=== PATIENT | female | born 1980 | race Caucasian/White ===

== ENCOUNTER 2016-06-14 07:11 | Outpatient (CLI) | payer MEDICARE | END 2016-06-14 07:12 | disposition home or self-care (01) | DX: R82.99 Other abnormal findings in urine (principal) ==

== ENCOUNTER 2016-08-01 16:52 | Outpatient (CLI) | payer MEDICARE | END 2016-08-01 16:53 | DX: R30.0 Dysuria (principal) ==

== ENCOUNTER 2016-08-16 14:40 | Outpatient (CLI) | payer MEDICARE | END 2016-08-16 14:41 | disposition home or self-care (01) | DX: N39.0 Urinary tract infection, site not specified (principal); N31.9 Neuromuscular dysfunction of bladder, unspecified ==

== ENCOUNTER 2017-07-19 08:00 | Outpatient (CLI) | payer MEDICARE | END 2017-07-19 08:01 | disposition home or self-care (01) | LOC: LAB.R 08:00 | PROVIDERS: ATTEND Nurse Practitioner Obstetrics & Gynecology | DX: R82.99 Other abnormal findings in urine (principal) | CPT/HCPCS: 87086 ==

== ENCOUNTER 2017-07-30 08:00 | Outpatient (CLI) | payer MEDICARE | END 2017-07-30 08:01 | disposition home or self-care (01) | LOC: LAB.WCP 08:00 | PROVIDERS: ATTEND Family Medicine | DX: N39.0 Urinary tract infection, site not specified (principal) | CPT/HCPCS: 87086 ==

== ENCOUNTER 2018-12-12 12:01 | Outpatient (CLI) | payer MEDICARE ==
--- NOTE | 2018-12-15 10:07 | Mammography Report ---
Reason: SCREENING MAMMOGRAM FOR BREAST CANCER Procedure Date: 12/12/2018 Accession Number: [id number] / [id number] Procedure: MGN - Screening Mammo Dig Bilat CPT Code: FULL RESULT: EXAM: Screening Mammo Dig Bilat DATE: 12/12/2018 12:36 PM CLINICAL HISTORY: Screening encounter. No reported risk factors. Baseline mammogram. TECHNIQUE: (B) - Bilateral CC, laterally exaggerated CC, MLO views were obtained. COMPARISON: None PARENCHYMAL PATTERN: (VD) - The breast(s) demonstrate(s) extremely dense parenchyma, limiting the sensitivity of mammography. FINDINGS: In the right upper outer breast approximately 5.5 cm from the nipple is the suggestion of a grouping of calcifications with question of a partially obscured focal asymmetry underlying. This requires additional views for clarification including 3-D imaging and spot magnification as well as possibly ultrasound. There are no suspicious masses, calcifications, or areas of distortion in the left breast. IMPRESSION: Incomplete examination. BI-RADS category 0. RECOMMENDATION: (ADDMU) - Additional views using both Mammography and Ultrasound recommended. Right upper outer breast BI-RADS CATEGORY: (0) - Incomplete Examination - need additional evaluation. STANDARD QUALIFYING STATEMENTS: 1. This examination was not reviewed with the aid of Computer-Aided Detection (CAD). 2. A negative or benign imaging report should not preclude biopsy if clinically suspicious findings are present. 3. Dense breasts may obscure an underlying neoplasm. 4. This examination was reviewed without the aid of 3D breast imaging (tomosynthesis).
== END 2018-12-12 12:02 | disposition home or self-care (01) ==
LOC: DI.N 12:01
PROVIDERS: ATTEND Obstetrics & Gynecology
DX: Z12.31 Encounter for screening mammogram for malignant neoplasm of breast (principal)
CPT/HCPCS: 77067

== ENCOUNTER 2018-12-25 12:35 | Outpatient (CLI) | payer MEDICARE ==
--- NOTE | 2018-12-25 16:11 | Mammography Report ---
Reason: ABNORMAL MAMMOGRAM Procedure Date: 12/25/2018 Accession Number: [id number] / [id number] Procedure: COREY - Diag Special Views Dig RT CPT Code: FULL RESULT: EXAM: Diag Special Views Dig RT DATE: 12/25/2018 1:47 PM CLINICAL HISTORY: Diagnostic examination. The patient is recalled from screening for right breast calcifications. TECHNIQUE: (R) - Right spot magnified CC, spot magnified MLO and right ML images are obtained. COMPARISON: 12/12/2018. PARENCHYMAL PATTERN: (VD) - The breast(s) demonstrate(s) extremely dense parenchyma, limiting the sensitivity of mammography. FINDINGS: Spot magnification views demonstrate that the predominance of the right breast lateral calcifications are not grouped, however, a cluster of fine likely pleomorphic calcifications resides within the right breast approximately 3 cm from the nipple in the region of focal asymmetry best demonstrated on the right spot MLO image and right spot magnified CC image. This likely corresponds to focally increased density on the 3-D right MLO image 7, approximately 2 cm deep to the nipple. The clustered fine possibly pleomorphic calcifications are suspicious. IMPRESSION: Suspicious findings. BI-RADS category 4. RECOMMENDATION: (BIOPSY) - stereotactic biopsy of the right breast. BI-RADS CATEGORY: (4) - Suspicious. STANDARD QUALIFYING STATEMENTS: 1. This examination was not reviewed with the aid of Computer-Aided Detection (CAD). 2. A negative or benign imaging report should not preclude biopsy if clinically suspicious findings are present. 3. Dense breasts may obscure an underlying neoplasm. 4. This examination was reviewed with the aid of 3D breast imaging (tomosynthesis).
== END 2018-12-25 12:36 | disposition home or self-care (01) ==
LOC: DI 12:35
PROVIDERS: ATTEND Obstetrics & Gynecology
DX: R92.1 Mammographic calcification found on diagnostic imaging of breast (principal)
CPT/HCPCS: 77065; G0279

== ENCOUNTER 2019-01-20 13:33 | Outpatient (CLI) | payer MEDICARE ==
[~2019-01-20 13:33] MED LIST: BUFFERED LIDOCAINE 10 ML SYRINGE ONE; BUPIVACAINE 0.5%-EPI 1:200000 PF 10 ML VIAL ONE
--- NOTE | 2019-01-20 14:49 | Mammography Report ---
Reason: PRE BIOPSY FILMS / BIOPSY CANCELLED Procedure Date: 01/20/2019 Accession Number: [id number] / [id number] Procedure: COREY - Diagnostic Dig RT CPT Code: FULL RESULT: EXAM: Diagnostic Dig RT DATE: 01/20/2019 2:00 PM CLINICAL HISTORY: Patient recently scheduled for stereotactic breast biopsy of possible calcifications in the central right breast noted on diagnostic workup for different calcifications recalled from baseline screening in the upper outer quadrant. Patient missed her morning biopsy appointment appointment, but came in the afternoon. TECHNIQUE: (R) - Right coned magnified CC and 90 degree lateral. COMPARISON: 12/25/2018 and 12/12/2018 PARENCHYMAL PATTERN: (D) - The breasts demonstrate heterogeneously dense fibroglandular parenchyma bilaterally. FINDINGS: Right breast: There are no suspicious masses, calcifications, or areas of distortion. Stable non-clustered/isolated punctate calcifications are noted in the upper outer breast. There is no mammographic finding of concern in the region requested for stereotactic breast biopsy. IMPRESSION: Right breast: Stable benign morphology calcifications upper outer breast. No mammographic finding in the region of recent concern in the anterior central breast. Benign findings. BI-RADS category 2. Biopsy was not performed due to lack of target. Exam results were discussed in detail with the patient. RECOMMENDATION: (ANNUAL) - Recommend routine annual screening mammography. BI-RADS CATEGORY: (2) - Benign Findings. STANDARD QUALIFYING STATEMENTS: 1. This examination was not reviewed with the aid of Computer-Aided Detection (CAD). 2. A negative or benign imaging report should not preclude biopsy if clinically suspicious findings are present. 3. Dense breasts may obscure an underlying neoplasm. 4. This examination was reviewed without the aid of 3D breast imaging (tomosynthesis).
== END 2019-01-20 13:34 | disposition home or self-care (01) ==
LOC: DI 13:33
PROVIDERS: ATTEND Family Medicine
DX: R92.8 Other abnormal and inconclusive findings on diagnostic imaging of breast (principal)

== ENCOUNTER 2019-06-10 08:00 | Outpatient (CLI) | payer MEDICARE ==
[2019-06-10 12:42] LABS: BASOPHILS % (AUTO) 0.5 %; EOSINOPHILS % (AUTO) 0.1 %; HGB - HEMOGLOBIN 12.2 g/dL (12.0-16.0); LYMPHOCYTES # (AUTO) 0.6 10^3/uL (1.5-3.5); LYMPHOCYTES % (AUTO) 7.1 %; MEAN CORPUSCULAR HEMOGLOBIN 29.7 pg (27.0-31.0); MEAN CORPUSCULAR HGB CONC 32.4 g/dL (32.0-36.0); MEAN CORPUSCULAR VOLUME 91.7 fL (81.0-99.0); MEAN PLATELET VOLUME 10.8 fL (7.9-10.8); MONOCYTES # (AUTO) 0.5 10^3/uL (0.0-1.0); MONOCYTES % (AUTO) 6.3 %; NEUTROPHILS # (AUTO) 6.8 10^3/uL (1.5-6.6); NEUTROPHILS % (AUTO) 85.6 %; PLT - PLATELET COUNT 239 10^3/uL (130-450); RED BLOOD COUNT 4.11 10^6/uL (4.20-5.40); RED CELL DISTRIBUTION WIDTH 13.9 % (12.0-15.0); WHITE BLOOD COUNT 7.9 x10^3/uL (4.8-10.8)
[2019-06-10 13:20] LABS: ALBUMIN/GLOBULIN RATIO 1.3 (1.0-2.2); ALKALINE PHOSPHATASE 53 IU/L (42-121); ALT ALANINE AMINOTRANSFERASE 24 IU/L (10-60); AST ASPARTATE AMINOTRANSFERASE 22 IU/L (10-42); BILIRUBIN,TOTAL 0.3 mg/dL (0.2-1.0); BUN - BLOOD UREA NITROGEN 29 mg/dL (6-20); CALCIUM 9.3 mg/dL (8.5-10.3); CARBON DIOXIDE - CO2 25 mmol/L (21-32); CHLORIDE 111 mmol/L (101-111); CHOL/HDL RATIO 1.6 (<4.4); CHOLESTEROL 152 mg/dL; CREATININE 0.9 mg/dL (0.4-1.0); GFR - MDRD 69 (>89); GLUCOSE 133 mg/dL (70-100); HDL CHOLESTEROL 94 mg/dL; LDL CHOLESTEROL,CALCULATED 38 mg/dL; LDL/HDL RATIO 0.4 (<4.4); SODIUM 143 mmol/L (135-145); TOTAL PROTEIN 7.2 g/dL (6.7-8.2); VLDL CHOLESTEROL 20 mg/dL
== END 2019-06-10 08:01 | disposition home or self-care (01) ==
LOC: LAB.WCP 08:00
PROVIDERS: ATTEND Family Medicine
DX: I10 Essential (primary) hypertension (principal)
CPT/HCPCS: 36415; 80053; 80061; 81599; 82088; 83721; 84244; 85025

== ENCOUNTER 2019-06-19 14:05 | Outpatient (CLI) | payer MEDICARE ==
[2019-06-19 18:58] LABS: CALCIUM 9.4 mg/dL (8.5-10.3); CREATININE 0.9 mg/dL (0.4-1.0)
== END 2019-06-19 23:59 | disposition home or self-care (01) ==
LOC: LAB.WCP 14:05
PROVIDERS: ATTEND Nurse Practitioner Family
DX: I10 Essential (primary) hypertension (principal)
CPT/HCPCS: 36415; 80048

== ENCOUNTER 2019-09-01 15:04 | Outpatient (CLI) | payer MEDICARE ==
--- NOTE | 2019-09-01 17:19 | Ultrasound Report ---
Reason: PELVIC PAIN Procedure Date: 09/01/2019 Accession Number: [id number] / [id number] Procedure: US - Pelvic w/Transvaginal CPT Code: Final Report FULL RESULT: EXAM: PELVIC ULTRASOUND EXAM DATE: 09/01/2019 03:02 PM. CLINICAL HISTORY: Pelvic pain for one month, history of . COMPARISON: None. TECHNIQUE: Realtime transabdominal pelvic scan performed to identify the uterus and adnexa and as an overview of other pelvic structures, followed by transvaginal scan to provide greater detail of the uterus and adnexa, with static image documentation. FINDINGS: Uterus: 7.0 x 3.6 x 4.1 cm, volume 54 cc. Anteverted position. Normal overall size and echotexture. Masses: None. Endometrium: 4 mm. Normal. Cervix: Unremarkable. Right Ovary: 2.2 x 1.9 x 1.7 cm, volume 3.7 cc. Normal echotexture and blood flow. Left Ovary: 2.9 x 1.8 x 1.8 cm, volume 4.9 cc. Normal echotexture and blood flow. Small incidental simple cyst or dominant follicle measures 1.4 cm. Free Fluid: None. Other: None. IMPRESSION: Normal pelvic ultrasound. RADIA
== END 2019-09-01 15:05 | disposition home or self-care (01) ==
LOC: DI 15:04
PROVIDERS: ATTEND Obstetrics & Gynecology
DX: R10.2 Pelvic and perineal pain (principal)
CPT/HCPCS: 76830; 76856

== ENCOUNTER 2019-11-25 10:35 | Day surgery (SDC) | payer MEDICARE ==
[2019-11-25] MEDS ORDERED: KETOROLAC 30 MG/ML VIAL IVP ONE (10:36)
[2019-11-25] MEDS ORDERED: ONDANSETRON 4 MG/2 ML VIAL IVP ONE (10:36)
[2019-11-25] MEDS ORDERED: PROPOFOL 200 MG/20 ML VIAL IVP ONE (10:36)
[2019-11-25] MEDS ORDERED: MIDAZOLAM 2 MG/2 ML VIAL IVP ONE (10:36)
[2019-11-25] MEDS ORDERED: DEXAMETHASONE 4 MG/ML VIAL IVP ONE (10:36)
[2019-11-25] MEDS ORDERED: GLYCOPYRROLATE 1 MG/5 ML VIAL IVP ONE (10:36)
[2019-11-25] MEDS ORDERED: fentaNYL 100 MCG/2 ML VIAL IVP ONE (10:36)
[2019-11-25] MEDS ORDERED: ROCURONIUM 50 MG/5 ML VIAL IVP ONE (10:36)
[2019-11-25] MEDS ORDERED: NEOSTIGMINE 1 MG/1 ML 10 ML MDV IVP ONE (10:36)
[2019-11-25] MEDS ORDERED: CEFAZOLIN SODIUM IN 0.9 % NACL 2 GM/100 ML BAG IV ONE (10:44)
[2019-11-25] MEDS ORDERED: LACTATED RINGERS 1,000 ML IV ONE ×2 (10:49→13:30)
[2019-11-25 10:57] LABS: HCG UR QUAL NEGATIVE
--- NOTE | 2019-11-25 11:11 | ANESTHESIA ---
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: Temp Pulse Resp BP Pulse Ox 36.8 C 83 16 119/78 99 11/25/19 10:49 11/25/19 10:49 11/25/19 10:49 11/25/19 10:49 11/25/19 10:49 Height 5 ft 4 in Weight (kg) 53.1 kg Body Mass Index 21.4 - NPO >8 hours - Is Patient ?: No Home Medications and Allergies Home Medications: Ambulatory Orders Nitrofurantoin [Macrobid] 100 mg PO ONCE PRN 11/17/19 hydroCHLOROthiazide [Hydrochlorothiazide] 25 mg PO DAILY 11/17/19 Acetaminophen [Tylenol] 650 mg PO Q6H PRN 09/17/16 Baclofen 20 - 60 mg PO BID 09/17/16 Buspirone HCl 30 mg PO TID 09/17/16 Cranberry Fruit [Cranberry] 400 mg PO DAILY 09/17/16 Ibuprofen 200 mg PO Q6H PRN 09/17/16 Methylphenidate [Ritalin] 5 mg PO BID 09/17/16 Trazodone HCl 100 mg PO DAILY PM PRN 09/17/16 atenoloL [Atenolol] 50 mg PO DAILY 09/17/16 lamoTRIgine [LaMICtal] 250 mg PO DAILY 09/17/16 Melatonin 10 mg PO QPM 10/24/18 Topiramate [Topamax] 50 mg PO QID PRN 10/24/18 buPROPion [Wellbutrin Sr] 150 mg PO DAILY 10/24/18 Magnesium Citrate 500 mg PO BID 07/21/19 Ocrelizumab [Ocrevus] 300 mg IV MAINTENANCE.IV 07/21/19 oxyCODONE [Roxicodone] 7.5 - 15 mg PO PRN PRN 07/21/19 tiZANidine [Zanaflex] 4 mg PO BID 07/21/19 Nitrofurantoin [Macrobid] 100 mg PO ONCE PRN 11/17/19 hydroCHLOROthiazide [Hydrochlorothiazide] 25 mg PO DAILY 11/17/19 Allergies/Adverse Reactions: Allergies Allergy/AdvReac Type Severity Reaction Status Date / Time vortioxetine hydrobromide * Allergy Mild Hives Verified 07/21/19 16:18 [From Brintellix] amitriptyline AdvReac Severe Anxiety Verified 07/21/19 16:18 alix AdvReac Severe Dizziness Verified 07/21/19 16:18 gabapentin AdvReac Anxiety Verified 07/21/19 16:18 Anes History & Medical History - Anesthetic History Anesthesia Complications: reports: No previous complications Family history of Anesthesia Complications: Denies Family history of Malignant Hyperthermia: Denies - Medical History Cardiovascular: reports: Hypertension Pulmonary: reports: None Gastrointestinal: reports: Chronic constipation Urinary: reports: None Neuro: reports: None, Multiple sclerosis, Other (Multiple Sclerosis) Musculoskeletal: reports: None, Fatigue, Other (chronic pain, legs and teeth. takes oxycodone everyday prn) Endocrine/Autoimmune: reports: None Blood Disorders: reports: None Skin: reports: None Smoking Status: Never smoker Psychosocial: reports: Depression, Anxiety - Surgical History General: Colonoscopy Gynecologic: section Orthopedic: Other Exam General: Alert, Oriented x3, Cooperative, No acute distress Dental: Partials Lower (out already) Mouth Openin Fingerbreadth Neck Mobility: Normal Mallampati classification: II Thyromental Distance: 4-6 cm Respiratory: Lungs clear, Normal breath sounds, No respiratory distress, No accessory muscle use Cardiovascular: Regular rate, Normal S1, Normal S2, No murmurs Abdomen: Normal bowel sounds, Soft, No tenderness, No hepatospenomegaly, No masses Extremities: No clubbing, No cyanosis, No edema, Normal pulses, No tenderness/swelling Neurological: Normal gait, Normal speech, Strength at 5/5 X4 ext, Normal tone, Sensation intact, Cranial nerves 3-12 NL, Reflexes 2+ Mental/Cognitive Status: Alert/Oriented X3, Normal for patient Cognitive Status: Within normal limits Plan Anesthesia Type: General Consent for Procedure(s) Verified and Reviewed: Yes Code Status: Attempt Resuscitation ASA classification: 3-Severe systemic disease Is this case an emergency?: No
[2019-11-25] MEDS ORDERED: BUPIVACAINE 0.25% PF 30 ML VIAL ONE (11:55)
[2019-11-25] MEDS ORDERED: METHYLENE BLUE 0.5% 50 MG/10 ML AMPULE ONE (11:55)
[2019-11-25] MEDS ORDERED: LIDOCAINE 1%-EPI 1:100000 20 ML MDV ONE (11:55)
[2019-11-25] MEDS ORDERED: BUPIVACAINE 0.25% PF 30 ML VIAL SUBQ ONE ×2 (12:39)
[2019-11-25] MEDS ORDERED: HYDROmorphone 0.5 MG/0.5 ML SYRINGE IVP PRN (13:26)
[2019-11-25] MEDS ORDERED: oxyCODONE 5 MG TABLET PO PRN (13:26)
[2019-11-25] MEDS ORDERED: LORazepam 2 MG/ML VIAL IVP PRN (13:26)
[2019-11-25] MEDS ORDERED: ONDANSETRON 4 MG/2 ML VIAL IVP PRN (13:26)
--- NOTE | 2019-11-25 13:31 | OPERATIVE REPORT ---
Operative Report - General Procedure Date: 11/25/19 Planned Procedure: Diagnostic Laproscopy. Pre-Op Diagnosis: noncyclic pelvic pain possible adhesions Procedure Performed: Diagnostic laproscopy with lysis of right pelvic adhesions Post Op Diagnosis: Right sided pelvic adhesions - Procedure Note Primary Surgeon: Kye Freeman MD Anesthesia Provider: Dirk Joyce CRNA Anesthesia Technique: General ET tube Pathology: none IV Fluids (mL): 1,000 Estimated Blood Loss (mL): 25 Urine Output (mL): 500 - Other Other Information/Narrative: [id number]
[2019-11-25] MEDS: fentaNYL 100 MCG/2 ML VIAL ONE ×2 (13:58→14:04)
[2019-11-25] MEDS ORDERED: oxyCODONE 5 MG TABLET ONE (14:27)
[2019-11-25 15:04] VITALS: BP 112/71
--- NOTE | 2019-11-25 17:31 | OPERATIVE REPORT ---
DATE OF SERVICE: 11/25/2019 Physician: Kye Freeman MD PREOPERATIVE DIAGNOSIS: Noncyclic right-sided pelvic pain. POSTOPERATIVE DIAGNOSIS: Right-sided noncyclic pelvic pain, pelvic adhesions. PROCEDURE PERFORMED: Diagnostic laparoscopy with lysis of right-sided pelvic adhesions. SURGEON: Kye Freeman MD. ANESTHESIA: General via endotracheal tube with Ignacio Joyce MD/Dirk Joyce CRNA. ANESTHETIC: General via endotracheal tube. ESTIMATED BLOOD LOSS: 25 mL IV FLUIDS: 1000 mL URINE OUTPUT: 500 mL preoperative. DESCRIPTION OF PROCEDURE: Following adequate endotracheal anesthesia, patient was placed in the supine position in [facility]. Pelvic examination under anesthesia revealed a uterus, which was anterior somewhat deviated to the right. There was evidence of what appeared to be stool in the pelvic cavity. At this point, she was prepped and draped in the usual fashion. Following a timeout, the procedure was commenced. A HUMI manipulator was placed following dilation of the cervix up to 8 mm and sounding to 8 cm. Local anesthesia with 0.25% Marcaine was injected in the subumbilical area and following this, a transverse incision with a #15 blade was accomplished. A trocar and sheath were placed under direct visualization. There is no evidence of any injury at site of trocar insertion. A secondary port was placed in the right lower quadrant following local anesthesia with Marcaine as well as a skin incision with a #15 blade. The trocars were placed under direct visualization. There was no evidence of injury at site. At this point, the entire pelvis was inspected. The left tube and ovary as well as ureters were visualized. The right tube and ovary were also visualized. They appeared to be free of any disease. The anterior portion of the uterus appeared to be normal. There is no evidence of any previous scar from her previous section. The cul-de-sac was free. Around the right cecal area, there was evidence of adhesions of the cecum to the anterior abdominal wall. These appeared to be light and filmy. There was no evidence of any other adhesions. The appendix was retrocecal and was not able to be visualized. The LigaSure was then used to cauterize and transect these adhesions to remove them. The area appeared to be free of any bleeding as well as any adhesions at this particular point, the gallbladder and liver were both inspected and noted to be free of any disease. The right lower quadrant and a trocar was then removed under direct visualization. There was no evidence of bleeding from this port. The laparoscope was removed and the CO2 was allowed to escape through the subumbilical port. At this point, both ports were closed utilizing 4-0 Monocryl subcuticular and then Dermabond was used. The instruments were removed from the vagina. The patient tolerated the procedure well and was taken to recovery in stable condition. Sponge and needle counts were correct. TD: 11/25/2019 13:42 MTDD
== END 2019-11-25 10:36 | disposition home or self-care (01) ==
LOC: SDS 10:35
PROVIDERS: ATTEND Obstetrics & Gynecology
DX: N73.6 Female pelvic peritoneal adhesions (postinfective) (principal); I10 Essential (primary) hypertension; G89.4 Chronic pain syndrome; G35 Multiple sclerosis
CPT/HCPCS: 44180; 81025; A9270; J0690; J7120

== ENCOUNTER 2020-04-30 14:04 | Outpatient (CLI) | payer MEDICARE ==
--- NOTE | 2020-05-03 09:26 | MRI Report ---
PROCEDURE: Ankle RT W/O INDICATIONS: RT ACHILLES TENDINITIS, RT ANKLE PAIN TECHNIQUE: Noncontrast sagittal T1 spin echo and T2 fast spin echo with fat saturation, axial proton density fas t spin echo and T2 fast spin echo with fat saturation, coronal T1 spin echo and T2 fast spin echo wit h fat saturation through the ankle/hindfoot. COMPARISON: None. FINDINGS: Image quality: Excellent. Bones and joints: Surface skin marker is placed over the anterolateral aspect of ankle joint. There is no bone marrow contusions or fractures. No hindfoot coalitions. No osteochondral injuries of the talar dome. Small amount of fluid within tibiotalar joint and subtalar joint is seen. Medial structures: The posterior tibialis, flexor digitorum longus, and flexor hallucis longus tendo ns are intact. The posterior tibial neurovascular bundle appears normal within the tarsal tunnel, wi thout extrinsic mass effect. The deep layer (anterior and posterior tibiotalar ligaments) and superf icial layer (tibionavicular, tibiospring, and tibiocalcaneal ligaments) of the deltoid ligament appea r normal. The spring ligament components (superomedial calcaneonavicular, medioplantar oblique calca neonavicular, and inferoplantar longitudinal ligaments) are intact. Lateral structures: The anterior talofibular, calcaneofibular, and posterior talofibular ligaments a ppears attenuated with intrasubstance T2 hyperintense signal is suggestive of sprain/low to moderate grade partial-thickness tear. More superiorly, the anterior and posterior tibiofibular ligaments also appears mildly thickened with intrasubstance T2 hyperintense signal. The tibiofibular syndesmosis is normal in width at 2 mm or less. The peroneus longus and brevis tendons demonstrate normal location and morphology. Adjacent bony peroneal tubercle and retrotrochlear prominence are normal in size. The sinus tarsi demonstrates normal fatty signal, without edema, fibrosis, or cyst formation. Visual ized sinus tarsi components (cervical ligament, interosseous talocalcaneal ligament, roots of the inf erior extensor retinaculum) appear normal. Anterior structures: The tibialis anterior, extensor hallucis longus, and extensor digitorum longus tendons appear intact. Posterior and plantar structures: Achilles tendon is intact. Medial and lateral bands of the planta r fascia are of normal thickness. No abductor digiti quinti muscle atrophy to suggest Alvarez neuropa thy. IMPRESSION: 1. Achilles tendon is intact. Plantar fascia is intact. 2. Extensor, flexor, and peroneus tendons are intact. 3. Suggestion of sprain/low to moderate grade partial-thickness tear involving lateral ankle ligament s more prominent involving anterior talofibular ligament. No full-thickness ligament rupture. Medial ankle ligaments are intact. 4. No marrow edema. No fracture or dislocation. Small amount of joint effusion. Reviewed by: Ruben Carr MD on 05/03/2020 9:25 AM PST Approved by: Ruben Carr MD on 05/03/2020 9:25 AM PST Station ID: [id number]
== END 2020-04-30 14:05 | disposition home or self-care (01) ==
LOC: DI 14:04
PROVIDERS: ATTEND Family Medicine
DX: R93.6 Abnormal findings on diagnostic imaging of limbs (principal); M25.471 Effusion, right ankle

== ENCOUNTER 2021-03-14 17:21 | Outpatient (CLI) | payer MEDICARE | END 2021-03-14 17:22 | disposition EMS.NT | LOC: EMS 17:21 | DX: Z03.89 Encounter for observation for other suspected diseases and conditions ruled out (principal) ==

== ENCOUNTER 2021-05-10 08:00 | Outpatient (CLI) | payer MEDICARE | END 2021-05-10 08:01 | disposition home or self-care (01) | LOC: LAB.WCP 08:00 | PROVIDERS: ATTEND Family Medicine | DX: R30.0 Dysuria (principal) | CPT/HCPCS: 87077; 87086 ==

== ENCOUNTER 2021-08-24 14:28 | Outpatient (CLI) | payer MEDICARE | END 2021-08-24 14:29 | disposition home or self-care (01) | LOC: MAC.MOP 14:28 | PROVIDERS: ATTEND Nurse Practitioner | DX: R55 Syncope and collapse (principal) | CPT/HCPCS: 93246 ==